=== PATIENT | female | born 1980 | race Caucasian/White ===

== ENCOUNTER 2023-03-21 15:38 | Emergency (ER) | payer SELFPAY ==
[2023-03-21 16:01] VITALS: BP 122/73; PULSE 71; RESP 18; TEMP 36.4; O2SAT 98; BMI 27.4
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
[2023-03-21 16:57] VITALS: RESP 18
[2023-03-21] MEDS: morphine 4 mg/mL SDV 1 mL IM (16:57)
[2023-03-21] MEDS: ketorolac 30 mg/mL INJ IM (16:57)
[2023-03-21] MEDS: dexamethasone 4 mg Tablet 10 MG PO (17:31)
[2023-03-21 17:32] VITALS: BP 133/81; PULSE 72; RESP 18; TEMP 36.6; O2SAT 100
--- NOTE | 2023-03-23 08:26 | DCPLANNER ---
Referral was sent to ortho clinic on 03/23/23 at 0826. Clinic to contact patient.
== END 2023-03-21 17:33 | disposition home or self-care (01) ==
PROVIDERS: Emergency Provider Nurse Practitioner Family; PCP Family Medicine
DX: M50.10 Cervical disc disorder with radiculopathy, unspecified cervical region (principal)
CPT/HCPCS: 72125; 96372; 99284; J1885; J2270; J8540